=== PATIENT | female | born 1965 | race Two or more races ===

== ENCOUNTER 2019-05-19 19:42 | Emergency (ER) | payer MEDICAID ==
[~2019-05-19] VITALS: Ht 167.6 cm; Wt 73.0 kg
[2019-05-20] MEDS ORDERED: LORAZEPAM 0.5MG TABLET PO ONE (01:00)
[2019-05-20 02:55] VITALS: BP 127/72
== END 2019-05-20 02:56 | disposition home or self-care (01) ==
LOC: ER 23:51
DX: F41.0 Panic disorder [episodic paroxysmal anxiety] (principal); F32.9 Major depressive disorder, single episode, unspecified; F17.210 Nicotine dependence, cigarettes, uncomplicated; Z88.6 Allergy status to analgesic agent
CPT/HCPCS: 99284